=== PATIENT | female | born 1985 | race African-American/Black ===

== ENCOUNTER 2021-09-05 08:34 | Emergency (ER) | payer MEDICAID ==
[~2021-09-05] VITALS: Ht 165.1 cm; Wt 86.2 kg
[2021-09-05 09:13] VITALS: BP 190/98
== END 2021-09-05 10:23 | disposition home or self-care (01) ==
LOC: ER 08:34
DX: M65.4 Radial styloid tenosynovitis [de Quervain] (principal); I10 Essential (primary) hypertension
CPT/HCPCS: 73110